=== PATIENT | female | born 1960 | race Caucasian/White ===

== ENCOUNTER 2024-04-18 12:23 | Emergency (ER) | payer MEDICARE, OTHER ==
[~2024-04-18] VITALS: Ht 157.5 cm; Wt 86.5 kg
[~2024-04-18 12:23] MED LIST: ADULT ASPIRIN R81 MG PO; ASPIRIN81 MG PO; BUPROPION XL150 MG PO; ELIQUIS5 MG PO; ENTRESTO 49 MG1 EACH PO; KEPPRA1000 MG PO; LIPITOR80 MG GT; LIPITOR80 MG PO; LISINOPRIL20 MG PO; MAGNESIUM400 M1 PO; METFORMIN HCL1000 M1 PO; METFORMIN HCL1000 MG PO; NEURONTIN300 MG PO; NITROSTAT0.4 MG SL; NORVASC5 MG PO; NOVOLOG100 UNIT/2; OMEPRAZOLE20 MG PO; ONDANSETRON HCL8 MG PO; PAXIL40 MG PO; PROVENTIL HFA6.7 GM INH; PROZAC20 MG PO; SOAANZ20 MG PO; TOPROL XL25 MG PO; TORSEMIDE20 MG PO; TRESIBA100 UNIT/1; VENTOLIN HFA18 GM INH; ZANAFLEX4 M1 PO
[2024-04-18] MEDS ORDERED: ondansetron HCL 4 MG/2 ML VIAL IV ONE (12:45)
[2024-04-18] MEDS ORDERED: SODIUM CHLORIDE 0.9% 1,000 ML IV ONE (12:45)
[2024-04-18] MEDS ORDERED: MORPHINE SULFATE 10 MG/ML VIAL IV PRN (12:45)
[2024-04-18 12:50] LABS: BASOPHILS 0.9 % (0-2); EOSINOPHILS 1.6 % (0-6); HEMATOCRIT 43.8 % (35.0-50.0); HEMOGLOBIN 14.4 g/dL (12.0-18.0); MCH 28.1 (27-36); MCHC 32.9 g/dl (30-36); MCV 85.5 fl (81-99); MONOCYTES 5.9 % (0-12); NEUTROPHILS 56.6 % (39-80); PLATELET COUNT 281 K/uL (140-440); RBC 5.12 M/ul (4.3-5.7); RDW 14.9 (10.5-15.0)
[2024-04-18 12:58] LABS: INR 0.95 (0.80-1.30)
[2024-04-18] MEDS ORDERED: HEParin SOD (PORCINE) 5,000 UNIT/ML SYR IV ONE ×2 (13:00)
[2024-04-18] MEDS ORDERED: HEPARIN SOD,PORK IN 0.45% NACL 500 ML IV SCH (13:00)
[2024-04-18] MEDS ORDERED: HEParin SOD (PORCINE) 5,000 UNIT/ML SYR IV PRN ×6 (13:00)
[2024-04-18 13:04] LABS: ALBUMIN 4.2 g/dL (3.4-5.0); ALBUMIN/GLOBULIN RATIO 0.95 (1.1-2.4); BILIRUBIN, TOTAL 0.4 ng/dL (0.2-1.0); BUN/CREATININE RATIO 8.72 (6.0-28.6); CALCIUM 10.5 mg/dL (8.5-10.1); CREATININE, SERUM 1.72 mg/dL (0.55-1.02); PROTEIN, TOTAL 8.6 g/dL (6.4-8.2)
[2024-04-18] MEDS ORDERED: SODIUM CHLORIDE 0.9% 1,000 ML IV PRN (13:45)
[2024-04-18] MEDS ORDERED: INSULIN REGULAR IN 0.9 % NACL 100 ML IV SCH ×2 (13:45→16:30)
[2024-04-18 16:27] LABS: PH, VENOUS 7.167 (7.31-7.41)
[2024-04-18 16:40] VITALS: BP 110/81
[2024-04-18 16:44] LABS: ANION GAP 22.6 (7-21); CALCIUM 9.1 mg/dL (8.5-10.1); CREATININE, SERUM 1.7 mg/dL (0.55-1.02); POTASSIUM 3.6 mmol/L (3.5-5.1)
== END 2024-04-18 16:40 | disposition short-term general hospital (02) ==
LOC: ED 12:23
PROVIDERS: Emergency Medicine
DX: E11.51 Type 2 diabetes mellitus with diabetic peripheral angiopathy without gangrene (principal); I70.223 Atherosclerosis of native arteries of extremities with rest pain, bilateral legs; I11.0 Hypertensive heart disease with heart failure; I50.9 Heart failure, unspecified; J44.9 Chronic obstructive pulmonary disease, unspecified; Z99.81 Dependence on supplemental oxygen; Z79.01 Long term (current) use of anticoagulants; Z79.82 Long term (current) use of aspirin; Z79.84 Long term (current) use of oral hypoglycemic drugs; Z79.4 Long term (current) use of insulin
CPT/HCPCS: 36415; 51702; 75635; 80048; 80053; 82553; 82803; 83615; 85025; 85610; 85730; 99285-25; J1644; J1815; J2270; J2405; J7030; Q9967